=== PATIENT | female | born 1995 | race Hispanic/Latino ===

== ENCOUNTER 2017-08-29 04:46 | Emergency (ER) | payer OTHER ==
[~2017-08-29] VITALS: Ht 157.5 cm; Wt 97.5 kg
[~2017-08-29 04:46] MED LIST: ACETAMINOPHEN-1 EAC1 PO; AUGMENTIN 875-1 EACH PO; BENADRYL25 MG PO; CEPHALEXIN500 MG PO; CYCLOBENZAPRINE10 MG PO; IBUPROFEN600 MG PO; NAPROXEN500 MG PO; OMEPRAZOLE20 MG PO; PREDNISONE20 MG PO; PROMETHAZINE HC25 M1 PO; TYLENOL325 MG PO; ZOFRAN ODT4 MG PO; ZOFRAN ODT4 MG SL
== END 2017-08-29 05:47 | disposition home or self-care (01) ==
LOC: ED 04:46
DX: G89.29 Other chronic pain (principal); M25.511 Pain in right shoulder; Z88.1 Allergy status to other antibiotic agents; Z88.8 Allergy status to other drugs, medicaments and biological substances
CPT/HCPCS: 99282